=== PATIENT | male | born 2000 | race Caucasian/White ===

== ENCOUNTER 2019-12-07 23:12 | Emergency (ER) | payer OTHER ==
[~2019-12-07] VITALS: Ht 167.6 cm; Wt 95.3 kg
[2019-12-07] MEDS ORDERED: FAMOTIDINE 20 MG/2 ML VIAL IV STA (23:27)
[2019-12-07] MEDS ORDERED: METHYLPREDNISOLONE SOD SUCC 125 MG/2ML VIAL IV ONE (23:30)
[2019-12-07] MEDS ORDERED: DIPHENHYDRAMINE HCL INJ 50 MG/ML VIAL IV ONE (23:30)
[2019-12-07] MEDS ORDERED: SODIUM CHLORIDE 0.9% 1000ML 1,000 ML IV SCH (23:30)
[2019-12-07] MEDS ORDERED: DIPHENHYDRAMINE HCL INJ 50 MG/ML VIAL ONE (23:41)
[2019-12-07] MEDS ORDERED: METHYLPREDNISOLONE SOD SUCC 125 MG/2ML VIAL ONE (23:41)
[2019-12-07] MEDS ORDERED: FAMOTIDINE 20 MG/2 ML VIAL IV ONE (23:42)
[2019-12-07] MEDS ORDERED: SODIUM CHLORIDE 0.9% 1000ML 1,000 ML ONE (23:42)
--- NOTE | 2019-12-08 00:30 | NUR ---
BLD CX DRAWN FROM L AND R ARMS. LACTIC ACID DRAWN R-AC
--- NOTE | 2019-12-08 00:35 | NUR ---
[facility] CALLED TO TRANSPORT LAC. ACID AND BLD CULTURES TO [facility]
--- NOTE | 2019-12-08 01:21 | Diagnostic Imaging Report ---
EXAM: CT Abdomen and Pelvis WITHOUT contrast INDICATION: Abdominal pain , nausea, vomiting COMPARISON: None. TECHNIQUE: Abdomen and pelvis were scanned utilizing a multidetector helical scanner from the lung base to the pubic symphysis without administration of IV contrast. Absence of intravenous contrast decreases sensitivity for detection of focal lesions and vascular pathology. Coronal and sagittal reformations were obtained. Routine protocol was performed. IV CONTRAST: None ORAL CONTRAST: None COMPLICATIONS: None RADIATION DOSE: Total DLP: 1308.. mGy*cm Estimated effective dose: (DLP x 0.015 x size factor) mSv CTDIvol has been reviewed. It is below the limits set by the Radiation Protocol Committee (RPC). Dose modulation, iterative reconstruction, and/or weight based adjustment of the mA/kV was utilized to reduce the radiation dose to as low as reasonably achievable. FINDINGS: LINES and TUBES: None. LOWER THORAX: Unremarkable HEPATOBILIARY: Diffuse hepatic hypoattenuation. The liver is enlarged. No focal hepatic lesions. No biliary ductal dilation. GALLBLADDER: No radio-opaque stones or sludge. No wall thickening. SPLEEN: No splenomegaly. PANCREAS: No focal masses or ductal dilatation. ADRENALS: No adrenal nodules KIDNEYS/URETERS: No hydronephrosis. No cystic or solid mass lesions. No stones. GI TRACT: No abnormal distention, wall thickening, or evidence of bowel obstruction. Liquid stool throughout the colon and rectum. Appendix is normal. PELVIC ORGANS/BLADDER: Unremarkable. LYMPH NODES: Slight prominence of mesenteric lymph nodes. No suspicious lymphadenopathy. VESSELS: Unremarkable. PERITONEUM / RETROPERITONEUM: No free air or fluid. BONES: Unremarkable. SOFT TISSUES: Tiny fat-containing periumbilical hernia. IMPRESSION: 1. Findings which can be seen with enterocolitis, included liquids stool throughout the colon and rectum indicative of diarrhea. 2. Hepatomegaly with hepatic steatosis. Signed by: Vitor Corrigan DO on 12/08/2019 1:17 AM
--- NOTE | 2019-12-08 02:07 | NUR ---
AWAKENED PT EASILY BY VOICE. PT RE-INFORMED OF NEED FOR UA SPECIMEN. MD IN TO SPEAKE WITH PT.
[2019-12-08] MEDS ORDERED: SODIUM CHLORIDE 0.9% 1000 ML BAG IV ONE (02:15)
[2019-12-08] MEDS ORDERED: SODIUM CHLORIDE 0.9% 1000ML 1,000 ML ONE (02:15)
[2019-12-08 03:03] VITALS: BP 141/75
== END 2019-12-08 03:03 | disposition home or self-care (01) ==
LOC: EDBD 23:12 → FSED 23:12
DX: L50.9 Urticaria, unspecified (principal)
CPT/HCPCS: 74176; 80048; 80076; 83605; 85025; 87040; 96374; 96375; 96376; 99284; J1200; J2930; J7030 ×2